=== PATIENT | female | born 1955 | race Caucasian/White ===

== ENCOUNTER 2020-09-04 07:29 | Outpatient (RCR) | payer MEDICARE, SELFPAY ==
--- NOTE | 2020-09-04 14:00 | HOLTER_ITS ---
APPROVED REPORT Conclusion There is a 48-hour monitor ordered for indication of palpitations. The patient was in normal sinus rhythm for the majority of the recording with an average heart rate o f 71 bpm. There are no episodes of ventricular tachycardia and rare PVCs. There were 2 episodes of supraventricular tachycardia with the longest lasting 3 beats. There were o ccasional PACs There were no episodes of atrial fibrillation, no pauses greater than 3 seconds and no evidence of hi gh degree heart block. There were 5 patient triggered events 1 of which was associated with PACs. The rest were associated with normal sinus rhythm.
== END 2020-09-06 23:59 | disposition home or self-care (01) ==
LOC: RT 07:29
PROVIDERS: PCP Internal Medicine; Visit Provider Internal Medicine
DX: R00.2 Palpitations (principal); I47.1 Supraventricular tachycardia; I49.1 Atrial premature depolarization
CPT/HCPCS: 93225; 93226

== ENCOUNTER 2020-09-04 13:29 | Outpatient (CLI) | payer MEDICARE, SELFPAY ==
[2020-09-04 14:40] LABS: HCT 44.7 % (36.0-46.0); HGB 14.4 g/dL (11.2-15.7); MCH 30.2 pg (27.0-33.0); MCHC 32.2 % (32.0-36.0); MCV 93.7 fL (80-95); MPV 10.7 fL (8.0-11.0); Platelet Count 203 10^3/uL (130-400); RBC 4.77 10^6/uL (3.93-5.22); RDW 13.4 % (11.7-14.6); RDW-SD 46.3 fL; WBC 5.09 10^3/uL (4.4-10.8)
[2020-09-04 15:46] LABS: ALT 38 U/L (14-59); AST 27 U/L (15-37); Albumin 3.8 g/dL (3.4-5.0); Alkaline Phosphatase 60 U/L (46-116); BUN 16 mg/dL (7-18); Bilirubin, Direct 0.1 mg/dL (0.0-0.2); Bilirubin, Total 0.5 mg/dL (0.2-1.0); CREATININE 0.6 mg/dL (0.55-1.02); Calcium 9.2 mg/dL (8.5-10.1); Chloride 107 mmol/L (98-107); Creatine Kinase 328 U/L (26-192); Glucose 142 mg/dL (74-106); Potassium 4.1 mmol/L (3.5-5.1); Sodium 144 mmol/L (136-145)
[2020-09-04 16:27] LABS: Vitamin B12 539 pg/mL (193-986)
[2020-09-05 09:01] LABS: IgA 134 mg/dL (85-499); IgG 813 mg/dL (610-1,616); IgM 108 mg/dL (35-242)
== END 2020-09-04 13:30 | disposition home or self-care (01) ==
LOC: LBO 13:31
PROVIDERS: PCP Internal Medicine; Visit Provider Internal Medicine
DX: M62.81 Muscle weakness (generalized) (principal); R00.2 Palpitations; R03.0 Elevated blood-pressure reading, without diagnosis of hypertension; R26.89 Other abnormalities of gait and mobility
CPT/HCPCS: 36415; 80053; 80076; 82550; 82784; 85027; 82607; 93225

== ENCOUNTER 2020-09-07 14:57 | Outpatient (CLI) | payer MEDICARE, SELFPAY | END 2020-09-07 14:58 | LOC: CARDO 11-16 09:18 | PROVIDERS: PCP Internal Medicine; Referring Provider Internal Medicine; Visit Provider Internal Medicine Cardiovascular Disease | DX: R00.2 Palpitations (principal); I47.1 Supraventricular tachycardia; I49.1 Atrial premature depolarization | CPT/HCPCS: 93227 ==

== ENCOUNTER → 2020-11-28 12:44 | Outpatient (BNVA) | payer MEDICARE, SELFPAY | PROVIDERS: PCP Internal Medicine; Referring Provider Internal Medicine; Visit Provider Psychiatry & Neurology Neurology | DX: M62.81 Muscle weakness (generalized) (principal); R00.2 Palpitations | CPT/HCPCS: 99205 ==

== ENCOUNTER 2021-01-09 13:17 | Outpatient (CLI) | payer MEDICARE, SELFPAY ==
--- NOTE | 2021-01-09 13:15 | RT.EKG_ITS ---
APPROVED REPORT Exam: Resting ECG Reason for Exam: palpitations Patient Location: O HR:76 bpm ECG Measurements Heart Rate 76 AXIS MN 228 P 64 QRSd 115 QRS -42 QT 412 T 46 QTc 464 Conclusion Sinus rhythm...normal P axis, V-rate 50- 99 Prolonged MN interval...MN >220, V-rate 50- 90 Left anterior fascicular block...axis(240,-40), init forces inf Left ventricular hypertrophy...multiple voltage criteria Possible Anterior infarct, old...Q >40mS, abnormal ST-T, V2-V5
== END 2021-01-09 13:18 | disposition home or self-care (01) ==
LOC: DI.CARD 13:18
PROVIDERS: PCP Internal Medicine; Visit Provider Internal Medicine Cardiovascular Disease
DX: R00.2 Palpitations (principal)
CPT/HCPCS: 93010

== ENCOUNTER → 2021-01-09 13:40 | Outpatient (BNVA) | payer MEDICARE, SELFPAY | PROVIDERS: PCP Internal Medicine; Referring Provider Internal Medicine; Visit Provider Internal Medicine Cardiovascular Disease | DX: R00.2 Palpitations (principal); R94.31 Abnormal electrocardiogram [ECG] [EKG]; R03.0 Elevated blood-pressure reading, without diagnosis of hypertension | CPT/HCPCS: 93005; 99202; 99213 ==

== ENCOUNTER 2021-02-20 00:51 | Outpatient (CLI) | payer MEDICARE, SELFPAY ==
--- NOTE | 2021-02-20 13:52 | DI.US_ITS ---
APPROVED REPORT EXAM: Comprehensive 2D, Doppler, and color-flow Echocardiogram Patient Location: Out-Patient Shaper Operator: Michelle Hernandez RDCS (AE) Indications: Palpitations Other Information Study Quality: Good Conclusion Normal left ventricular wall thickness and chamber size. Estimated ejection fraction is 60 to 65%. Wall motion is normal Normal right ventricular size and systolic function Both atria are normal in size The aortic valve is mildly sclerotic and trileaflet with trace regurgitation Wall motion Left Ventricle The left ventricle is normal size. The left ventricular systolic function is normal. The left ventric ular ejection fraction is within the normal range. There is normal left ventricular wall thickness. T here is normal LV segmental wall motion. There is no ventricular septal defect visualized. LVEF is 60 -65%. Right Ventricle The right ventricle is normal size. The right ventricular systolic function is normal. The RVSP is 19 .7 mmHg. Atria The left atrium size is normal. The right atrium size is normal. The interatrial septum is intact wit h no evidence for an atrial septal defect. Aortic Valve The aortic valve is mildly sclerotic Aortic valve is trileaflet. There is no aortic valvular stenosis . Trace aortic regurgitation. Mitral Valve The mitral valve is normal in structure. No evidence of mitral valve stenosis. Trace mitral regurgita tion. Tricuspid Valve The tricuspid valve is normal in structure. There is no tricuspid valve stenosis. Trace tricuspid reg urgitation. Pulmonic Valve The pulmonary valve is normal in structure. There is no pulmonic valvular stenosis. There is no pulmo paty valvular regurgitation. Great Vessels The aortic root is normal in size. The ascending aorta is borderline dilated. Aortic arch is normal i n caliber. IVC is normal in size and collapses >50% with inspiration. Pericardium There is no pericardial effusion. 2D Dimensions IVSD d PLAX 0.97 cm F: 0.6-1.0 LV Vol A2C d MOD 80.5 mL LVPW d PLAX 0.98 cm F: 0.6 - 1.0 LV Vol A4C d MOD 90.9 mL LVID d PLAX 4.45 cm F: 3.8 - 5.2 LA vol/ BSA A2C s A-L 27.0 mL/m2 LVDs 2.95 cm F: 2.2 - 3.5 LA vol/ BSA A4C s A-L 18.2 mL/m2 Ao Root d 3.36 cm F: 2.7 - 3.3 LA Vol/ BSA Biplane s A-L 23.7 mL/m2 RA Area A4C 11.15 cm2 LA Area A4C s MOD 12.28 cm2 RA Vol/ BSA A4C s A-L 16.2 mL/m2 LA Area A2C s MOD 15.95 cm2 Ao Asc Diam d 3.34 cm F: 2.3 - 3.1 LV EF A4C MOD 64.8 % LV EF Teichholz 62.2 % LV EF A2C MOD 60.0 % LVEF (Rader's) 61.58 % F: 54 - 74 LV EF Biplane MOD 61.6 % LV Volume 70.43 mL F: 46 - 106 SV 54.64 mL LV Volume Index 41.42 mL/m2 F: 29 - 61 SV Index 32.11 mL/m2 LV Vol Biplane MOD 88.7 mL FS 33.30 % LV Diastology E/A Ratio 1.2 MV E Vmax 0.89 (0.4-1.3 m/s) MV A Vmax 0.75 (0.4-1.3 m/s) MV E/A Ratio 1.14 Aortic Valve LVOT Area 3.59 cm2 AoV Area Vmax 2.85 cm2 LVOT Vmax 0.95 m/s AoV Area/ BSA (Vmax) 1.68 cm2/m2 LVOT Mean Dorian. 0.59 m/s CHAGO Mean Dorian. 2.50 cm2 LVOT Peak Grad 3.6 mmHg CHAGO Mean Dorian. Index 1.47 cm2/m2 LVOT Mean Grad 1.7 mmHg AR DT 1765 msec LVOT VTI 0.198 m AR PHT 512 msec LVOT Diam s 2.10 cm AoV Vmax 1.20 m/s Velocity Ratio 0.79 AoV Mean Dorian. 0.84 m/s AoV Peak Grad 5.7 mmHg LVOT SV 71.01 mL AoV Mean Grad 3.2 mmHg AoV VTI 0.279 m AoV Area VTI 2.54 cm2 AoV Area/ BSA (VTI) 1.49 cm/m2 Mitral Valve MV DT 178 (160-240 msec) MV PHT 52 msec MV Area PHT 4.26 cm2 MV VTI 0.251 m MV Area VTI 2.83 (4.0-6.0 cm2) Pulmonary Valve PV Vmax 0.86 (0.5-1.5 m/s) RVOT Peak Gr. 1.31 mmHg PV Peak Grad 3.0 mmHg RVOT Mean Gr. 0.70 mmHg PV Mean Grad 1.5 mmHg RVOT VTI 0.124 m PV VTI 0.193 m RVOT Vmax 0.57 m/s Tricuspid Valve TR Peak Grad 16.6 mmHg TR Vmax 2.04 m/s RA Pressure 3.00 mmHg RVSP (TR) 19.7 mmHg
== END 2021-02-20 01:11 ==
PROVIDERS: PCP Internal Medicine; Visit Provider Internal Medicine Cardiovascular Disease
DX: R00.2 Palpitations (principal)
CPT/HCPCS: 93306

== ENCOUNTER → 2021-04-19 12:48 | Outpatient (BNVA) | payer MEDICARE, SELFPAY | PROVIDERS: PCP Internal Medicine; Referring Provider Internal Medicine; Visit Provider Internal Medicine Cardiovascular Disease | DX: R94.31 Abnormal electrocardiogram [ECG] [EKG] (principal); R00.2 Palpitations | CPT/HCPCS: 99213 ==

== ENCOUNTER → 2021-05-29 11:05 | Outpatient (BNVA) | payer MEDICARE, SELFPAY | PROVIDERS: PCP Internal Medicine; Referring Provider Internal Medicine; Visit Provider Psychiatry & Neurology Neurology | DX: G71.11 Myotonic muscular dystrophy (principal); Z83.3 Family history of diabetes mellitus; R00.2 Palpitations | CPT/HCPCS: 99215 ==

== ENCOUNTER → 2021-11-27 10:40 | Outpatient (BNVA) | payer MEDICARE, SELFPAY | PROVIDERS: PCP Student in an Organized Health Care Education/Training Program; Referring Provider Student in an Organized Health Care Education/Training Program; Visit Provider Psychiatry & Neurology Neurology | DX: G71.11 Myotonic muscular dystrophy (principal) | CPT/HCPCS: 99214 ==

== ENCOUNTER 2021-12-17 02:50 | Outpatient (CLI) | payer MEDICARE, SELFPAY ==
[2021-12-17 10:51] LABS: Hemoglobin A1C 5.8 % (<5.7)
[2021-12-17 11:27] LABS: ALT 44 U/L (14-59); AST 36 U/L (15-37); Albumin 3.9 g/dL (3.4-5.0); Alkaline Phosphatase 64 U/L (46-116); Bilirubin, Direct 0.1 mg/dL (0.0-0.2); Bilirubin, Total 0.8 mg/dL (0.2-1.0); TSH (W/Ref FT4) 1.53 uIU/mL (0.36-3.74); Total Protein 7.7 g/dL (6.4-8.2)
== END 2021-12-17 02:51 | disposition home or self-care (01) ==
LOC: LBO 02:51
PROVIDERS: PCP Student in an Organized Health Care Education/Training Program; Visit Provider Psychiatry & Neurology Neurology
DX: G71.11 Myotonic muscular dystrophy (principal); M62.81 Muscle weakness (generalized); R73.9 Hyperglycemia, unspecified
CPT/HCPCS: 36415; 80076; 83036; 84443

== ENCOUNTER 2021-12-17 09:46 | Outpatient (CLI) | payer MEDICARE, SELFPAY ==
--- NOTE | 2021-12-17 09:45 | RT.EKG_ITS ---
APPROVED REPORT Exam: Resting ECG Patient Location: O HR:74 bpm ECG Measurements Heart Rate 74 AXIS KS 239 P 69 QRSd 113 QRS -46 QT 413 T 30 QTc 459 Conclusion Sinus rhythm...normal P axis, V-rate 50- 99 Prolonged KS interval...KS >220, V-rate 50- 90 Probable left atrial enlargement...P >50mS, <-0.10mV V1 Left anterior fascicular block...axis(240,-40), init forces inf Left ventricular hypertrophy...multiple LVH criteria
== END 2021-12-17 09:47 | disposition home or self-care (01) ==
PROVIDERS: PCP Student in an Organized Health Care Education/Training Program; Visit Provider Student in an Organized Health Care Education/Training Program
DX: R94.31 Abnormal electrocardiogram [ECG] [EKG] (principal); I44.4 Left anterior fascicular block
CPT/HCPCS: 36415; 80076; 83036; 84443; 93005; 93010

== ENCOUNTER 2022-03-26 01:42 | Outpatient (CLI) | payer MEDICARE, SELFPAY ==
--- NOTE | 2022-03-26 12:58 | DI.RAD_ITS ---
Exam(s) XR HAND LT COMPLETE EXAM: XR HAND LT COMPLETE CLINICAL HISTORY: eval left digit #2 for OA, mucoid cyst, joint path,JOINT MUCOID CYST,LESION. TECHNIQUE: 2D digital imaging was performed. COMPARISON: No exams were available for comparison FINDINGS: Four views: There is no evidence of fracture nor subluxations. No abnormal soft tissue calcifications. Bone den sity normal. No osseous lesions. No erosions. No obvious degenerative changes evident. IMPRESSION: No significant radiograph findings. DATA REPOSITORY: RADIATION DOSE DELIVERED:
== END 2022-03-26 02:02 ==
LOC: DI 01:42
PROVIDERS: PCP Student in an Organized Health Care Education/Training Program; Visit Provider Student in an Organized Health Care Education/Training Program
DX: Z12.31 Encounter for screening mammogram for malignant neoplasm of breast (principal); R92.8 Other abnormal and inconclusive findings on diagnostic imaging of breast; M19.042 Primary osteoarthritis, left hand; L98.9 Disorder of the skin and subcutaneous tissue, unspecified; M67.40 Ganglion, unspecified site
CPT/HCPCS: 77063; 77067; 73130

== ENCOUNTER → 2022-05-28 10:40 | Outpatient (BNVA) | payer MEDICARE, SELFPAY | PROVIDERS: PCP Student in an Organized Health Care Education/Training Program; Visit Provider Psychiatry & Neurology Neurology | DX: R00.2 Palpitations (principal); G71.11 Myotonic muscular dystrophy; R73.9 Hyperglycemia, unspecified | CPT/HCPCS: 99215 ==

== ENCOUNTER 2022-07-18 02:51 | Outpatient (CLI) | payer MEDICARE, SELFPAY ==
[2022-07-18 09:04] LABS: ALT 41 U/L (14-59); AST 32 U/L (15-37); Albumin 3.5 g/dL (3.4-5.0); Alkaline Phosphatase 64 U/L (46-116); Anion Gap 8.9 mmol/L (3-11); BUN 13 mg/dL (7-18); Bilirubin, Total 0.7 mg/dL (0.2-1.0); CO2 30.1 mmol/L (21.0-32.0); CREATININE 0.4 mg/dL (0.55-1.02); Calcium 9.3 mg/dL (8.5-10.1); Calculated LDL 133 mg/dL (<100); Chloride 105 mmol/L (98-107); Cholesterol 246 mg/dL (<200); Estimated GFR 107.74 (mL/min/1.73m2); Glucose 96 mg/dL (74-106); HDL Cholesterol 102 mg/dL (40-60); Potassium 4.3 mmol/L (3.5-5.1); Sodium 144 mmol/L (136-145); Triglyceride 59 mg/dL (<150)
== END 2022-07-18 02:52 | disposition home or self-care (01) ==
LOC: LBO 02:52
PROVIDERS: PCP Student in an Organized Health Care Education/Training Program; Visit Provider Student in an Organized Health Care Education/Training Program
DX: R73.03 Prediabetes; R79.89 Other specified abnormal findings of blood chemistry
CPT/HCPCS: 36415; 80053; 80061

== ENCOUNTER 2022-08-16 00:18 | Outpatient (CLI) | payer MEDICARE, SELFPAY ==
--- NOTE | 2022-08-16 07:09 | DI.US_ITS ---
Exam(s) US SOFT TISSUE EXTREMITY EXAM: US SOFT TISSUE EXTREMITY CLINICAL HISTORY: Evluate CYSTIC LESION, Rft index (DIP),ganglion,m67.441. TECHNIQUE: Ultrasound was performed using standard protocol. COMPARISON: US US SOFT TISSUE EXTREMITY from 08/16/2022 FINDINGS: Sonographic assessment utilizing grayscale and color Doppler imaging was performed and targeted to th e area of clinical concern. There is a tiny ill-defined cystic lesion measuring 0.5 x 0.1 x 0.3 cm in the soft tissues of the rig ht 5th finger. This is nonspecific sonographically. It has benign characteristics. Differential co nsiderations include sebaceous cyst, abscess, resolving hematoma or or ganglion cyst. IMPRESSION: DATA REPOSITORY:
--- NOTE | 2022-08-16 07:09 | DI.US_ITS ---
Exam(s) US SOFT TISSUE EXTREMITY EXAM: US SOFT TISSUE EXTREMITY CLINICAL HISTORY: Evluate CYSTIC LESION, Lft index (DIP),ganglion,m67.442. TECHNIQUE: Ultrasound was performed using standard protocol. COMPARISON: No exams were available for comparison FINDINGS: Sonographic assessment utilizing grayscale and color Doppler imaging was performed and targeted to th e area of clinical concern. There is a 0.8 x 0.2 x 0.9 cm cystic lesion in the soft tissues of the left index finger correspondin g to the palpable abnormality. It is nonspecific. Differential considerations include sebaceous cys t, abscess, resolving hematoma or ganglion cyst. IMPRESSION: DATA REPOSITORY:
== END 2022-08-16 00:38 ==
LOC: DI 00:18
PROVIDERS: PCP Student in an Organized Health Care Education/Training Program; Visit Provider Student in an Organized Health Care Education/Training Program
DX: M79.89 Other specified soft tissue disorders (principal)
CPT/HCPCS: 76881

== ENCOUNTER → 2022-12-03 10:16 | Outpatient (BNVA) | payer MEDICARE, SELFPAY | PROVIDERS: PCP Student in an Organized Health Care Education/Training Program; Referring Provider Student in an Organized Health Care Education/Training Program; Visit Provider Psychiatry & Neurology Neurology | DX: G71.11 Myotonic muscular dystrophy (principal); M62.81 Muscle weakness (generalized); R00.2 Palpitations | CPT/HCPCS: 99214 ==

== ENCOUNTER → 2023-02-04 14:34 | Outpatient (BNVA) | payer MEDICARE, SELFPAY | PROVIDERS: PCP Student in an Organized Health Care Education/Training Program; Referring Provider Student in an Organized Health Care Education/Training Program; Visit Provider Psychiatry & Neurology Neurology | DX: M62.81 Muscle weakness (generalized) (principal); G71.11 Myotonic muscular dystrophy; R00.2 Palpitations | CPT/HCPCS: 99214 ==

== ENCOUNTER 2024-01-21 02:12 | Outpatient (CLI) | payer MEDICARE, SELFPAY ==
[2024-01-21 13:08] LABS: Hemoglobin A1C 5.6 % (<5.7)
== END 2024-01-21 02:13 | disposition home or self-care (01) ==
PROVIDERS: PCP Student in an Organized Health Care Education/Training Program; Visit Provider Student in an Organized Health Care Education/Training Program
DX: R73.03 Prediabetes (principal)
CPT/HCPCS: 36415; 83036

== ENCOUNTER → 2024-02-03 14:39 | Outpatient (BNVA) | payer MEDICARE, SELFPAY | PROVIDERS: PCP Student in an Organized Health Care Education/Training Program; Visit Provider Psychiatry & Neurology Neurology | DX: G71.11 Myotonic muscular dystrophy (principal); M62.81 Muscle weakness (generalized); R00.2 Palpitations | CPT/HCPCS: 99215 ==

== ENCOUNTER 2024-03-05 10:27 | Emergency (ER) | payer MEDICARE, SELFPAY ==
[2024-03-05] VITALS (11 sets, daily range): BP systolic 142–165; BP diastolic 45–94; PULSE 70–85; RESP 14; TEMP 36.4; O2SAT 97–99
--- NOTE | 2024-03-05 10:38 | ED.GENADUL_ITS ---
Discharge Plan Disposition Patient Disposition: Home Condition: Stable Discharge Details Clinical Impression: Gastroenteritis Primary Care Provider: Ana Bauer ED Provider: Larry Jacinto Home Meds and New Rx's Prescriptions: New azithromycin 500 mg tablet 500 mg PO DAILY 3 Days Qty: 3 0RF ondansetron 4 mg tablet,disintegrating 4 mg PO Q8H PRN (Reason: nausea and vomiting) Qty: 30 0RF potassium chloride 20 mEq tablet extended release 20 meq PO BID 10 Days Qty: 20 0RF Continued Serum Tears 6 - 8 drp OU DAILY PRN Patient Comments: 6-8 gtts OU daily, w/ blood testing.HE Calm Gummies Magnesium 1 tab PO HS Patient Comments: Pt taking Calm gummies, suggested dose on bottle is 330mg, which is 4 gummies, she is currently taking 2 gummies once per day.HE Ckmblfwm-Lscxfm-GVH with vit D 1 EACH tablet 3 ea PO DAILY artificial tears with lanolin Ointment 1 applic ophthalmic (eye) BID-TID PRN peg 400-propylene glycol 0.4-0.3 % drops, liquid gel 1 drp ophthalmic (eye) QHS Discharge Instructions Instructions: Azithromycin (Systemic), High Potassium Diet, Ondansetron, Potassium Chloride, Diarrhea, Adult ED Additional Instructions: You were seen in the emergency department for your diarrhea since yesterday. Have some stool positive for lactoferrin which could indicate bacterial diarrhea, I am treating this with azithromycin which treats common traveler's diarrhea and foodborne illness diarrhea cases. Please continue good p.o. intake of Pedialyte and nutritious foods, take the prescribed potassium supplements for 10 days have your level rechecked at your primary care. You may take [id number]-[id number]-[id number] antidiarrheal like Imodium as needed. Please return for intractable nausea and vomiting and diarrhea, increasing abdominal pain, fever, chest pain or other emergent concerns, I have provided you with a prescription for the nausea tablets that dissolves under your tongue called ondansetron. Referrals: Ana Bauer DO [Primary Care Provider] - Discharge Data Discharge Date/Time-TO BE ENTERED AT DEPARTURE: 03/05/24 12:57 HPI General Date/Time Provider Initiated Documentation: 03/05/24 10:28 . HPI Narrative: 68 year-old female presents to ED today by POV/ambulating with a chief complaint of mild abdominal pain, and diarrhea since yesterday- completely liquid. Quality described as mild dehydration but she is not having nausea or vomiting, she just states that she has been trying to drink less as she equates this with how much liquid she is excreting, no radiation to high fever, severe abdominal pain, cough, shortness of breath, black or bloody stools, hematuria. Severity is described as severe for diarrhea. Palliating factors include nothing specific attempted. Provoking factors include nothing specific. Events leading up to the incident/Associated Symptoms: Patient endorses history of partial colectomy in 1995. Patient not anticoagulated. Related Data Home Medications ?Medication ?Instructions ?Recorded ?Confirmed glucosamine 750 eb-kvcgsb-fdd 2-C 3 ea PO DAILY 11/04/12 03/05/24 30 mg-D3 1,000 unit-kong 1 mg tablet (Ikkshqvjwpl-Xorjebbbpit-BBW + vitD) artificial tears with lanolin eye 1 applic ophthalmic (eye) BID-TID 05/28/23 03/05/24 ointment PRN peg 400-propylene glycol 0.4 %-0.3 1 drp ophthalmic (eye) QHS 06/18/23 03/05/24 % eye liquid gel drops Serum Tears 6 - 8 drp OU DAILY PRN 07/11/23 03/05/24 Calm Gummies Magnesium 1 tab PO HS 02/13/24 03/05/24 azithromycin 500 mg tablet 500 mg PO DAILY 3 days #3 tabs 03/05/24 ondansetron 4 mg disintegrating 4 mg PO Q8H PRN nausea and 03/05/24 tablet vomiting #30 tabs potassium chloride 20 mEq 20 meq PO BID hypokalemia 10 days 03/05/24 tablet,extended release #20 tabs Previous Rx's ?Medication ?Instructions ?Recorded azithromycin 500 mg tablet 500 mg PO DAILY 3 days #3 tabs 03/05/24 ondansetron 4 mg disintegrating 4 mg PO Q8H PRN nausea and 03/05/24 tablet vomiting #30 tabs potassium chloride 20 mEq 20 meq PO BID hypokalemia 10 days 03/05/24 tablet,extended release #20 tabs Allergies Allergy/AdvReac Type Severity Reaction Status Date / Time azithromycin AdvReac diarrhea Verified 03/05/24 10:34 tdap AdvReac Left Uncoded 03/05/24 10:34 deltoid muscular pain for extended period of 3M General Stated Complaint: Abd Prob MITCHEL: 3 Review of Systems All systems reviewed & are unremarkable except as noted in HPI and below Exam Narrative Exam Narrative: GENERAL APPEARANCE: Well-nourished, non-toxic, awake and alert, atraumatic, no acute distress. SKIN: Warm, pink, dry, intact, without rashes/lesions/ulcerations. HEAD: Normocephalic, atraumatic, normal hair distribution for gender/age. EYES: Normal conjunctiva, no exudates on lids/lashes. ENT: Nares patent, no circumoral cyanosis, no facial swelling NECK: Supple, trachea midline, painless cervical ROM. LUNGS/CHEST: Lungs CTA bilaterally- no rhonchi/rales/wheezes diffusely, non- labored respirations, normal A/P diameter, symmetrical expansion, no chest wall deformity HEART (CV/PV): Regular rate and rhythm without murmur, no peripheral edema, no JVD. ABDOMEN: Soft, non-distended, no guarding, no tenderness. MSK: Normal ROM, no swelling/deformity to bilateral UEs or LEs, moving all extremities without weakness, no cyanosis, spine midline without tenderness, normal curvature. NEURO: Mental Status AAOx4 - alert to person, place, time, events No facial droop, no forehead involvement. Motor: No focal weakness - strength 5/5 in bilateral UEs and LEs, proximal and distal, symmetric. Sensory: sensation intact to light touch globally. Gait normal: patient ambulated without ataxia into ED room. PSYCH: euthymic, cooperative, pleasant, appropriate speech Course Vital Signs Vital signs: Vital Signs Temperature 36.4 C L 03/05/24 10:30 Pulse 85 03/05/24 10:30 Respiratory Rate 14 03/05/24 10:30 Blood Pressure 165/94 H 03/05/24 10:30 Pulse Oximetry 97 03/05/24 10:30 Temperature 36.4 C L 03/05/24 10:36 Temperature Source Oral 03/05/24 10:36 Pulse 85 03/05/24 10:36 Respiratory Rate 14 03/05/24 10:36 Blood Pressure 165/94 H 03/05/24 10:36 Pulse Oximetry 97 03/05/24 10:36 Oxygen Delivery Method Room Air 03/05/24 10:36 Oxygen Flow Rate 0 03/05/24 10:36 Pain Level 2 03/05/24 10:36 Medical Decision Making This dictation utilizes [id number]-bi-[id number] dictation software and may contain unedited grammatical errors. 68 year-old female presents to ED today by POV/ambulating with a chief complaint of mild abdominal pain, and diarrhea since yesterday- completely liquid. Quality described as mild dehydration but she is not having nausea or vomiting, she just states that she has been trying to drink less as she equates this with how much liquid she is excreting, no radiation to high fever, severe abdominal pain, cough, shortness of breath, black or bloody stools, hematuria. Severity is described as severe for diarrhea. Palliating factors include nothing specific attempted. Provoking factors include nothing specific. Events leading up to the incident/Associated Symptoms: Patient endorses history of partial colectomy in 1995. Patients' medical history: Insulin resistance, hyperlipidemia, first- degree AV block, prediabetes, palpitations. Family and social history: Eats normal diet, lives independently. Pertinent exam findings / vital signs include no abdominal tenderness, normal conjunctiva, very mild skin tenting to hands, benign cardiopulmonary status. Differential / pathologies of concern include gastroenteritis, electrolyte abnormality. Diagnostic studies of: -CBC, CMP, magnesium, UA, stool studies. -CBC benign -CMP shows hypokalemia 2.9 -Magnesium within normal limits -UA sample not provided -Negative for C. difficile, is positive lactoferrin in stool, giving ABX for em piric bacterial enteritis Interventions of: -4mg PO zofran, 40mEq K-Chlor, Pedialyte, Rx for potassium supplements. ED Course/Assessment/Plan: 68-year-old female presents with 1 day of diarrhea, she follows her PCP office and they referred her for IV antibiotics, had hypokalemia on arrival but no signs of severe clinical dehydration, tolerating p.o. intake here and I did prescribe her potassium supplements as well as 3 days of azithromycin as she had lactoferrin on stool studies indicating a possible bacterial gastroenteritis, counseled the patient on staying well-hydrated and that drinking more fluids would not make her diarrhea more liquid and suggest she try Imodium A-D, I stressed strict return criteria for any severe increase in abdominal pain, fever, intractable nausea or vomiting. Findings not consistent with sepsis, acute abdominal pathology, severe electrolyte abnormality. Disposition of gastroenteritis. Patient verbalized understanding of the plan and return to ED criteria and engaged in shared decision making. Medical Records Medical records reviewed: Yes I reviewed the patient's medical records. Lab Data Lab results reviewed: Yes I reviewed the patient's lab results. Labs: 03/05/24 11:35 Stool Lactoferrin Latex Agglutination - Final Laboratory Tests Range/Units 03/05/24 03/05/24 03/05/24 11:10 11:35 12:35 WBC (4.4-10.8) 10^3/uL 5.87 RBC (3.93-5.22) 10^6/uL 4.97 Hgb (11.2-15.7) g/dL 14.8 Hct (36.0-46.0) % 46.6 H MCV (80-95) fL 94 MCH (27.0-33.0) pg 29.8 MCHC (32.0-36.0) % 31.8 L RDW (11.7-14.6) % 13.2 Plt Count (130-400) 10^3/uL 204 MPV (8.0-11.0) fL 10.0 Immature Gran % % 0.3 Neutrophils % % 69.7 Lymphocytes % % 17.2 Monocytes % % 12.3 Eosinophils % % 0.3 Basophils % % 0.2 Nucleated RBC % (0.0-0.3) % 0.0 Absolute Neutrophils (1.2-6.7) 10^3/uL 4.09 Absolute Lymphocytes (1.2-3.4) 10^3/uL 1.01 L Absolute Monocytes (0.1-0.8) 10^3/uL 0.72 Absolute Eosinophils (0.0-0.7) 10^3/uL 0.02 Absolute Basophils (0.0-0.2) 10^3/uL 0.01 Sodium (136-145) mmol/L 142 Potassium (3.5-5.1) mmol/L 2.9 L* Chloride (98-107) mmol/L 106 Carbon Dioxide (21.0-32.0) mmol/L 26.5 Anion Gap (3-11) mmol/L 9.5 BUN (7-18) mg/dL 21 H Creatinine (0.55-1.02) mg/dL 0.6 Est GFR (CKD-EPI 2020) (mL/min/1.73m2) 97.10 Glucose (74-106) mg/dL 92 Calcium (8.5-10.1) mg/dL 9.1 Magnesium (1.8-2.4) mg/dL 1.9 Total Bilirubin (0.2-1.0) mg/dL 0.44 AST (15-37) U/L 41 H ALT (14-59) U/L 44 Alkaline Phosphatase (46-116) U/L 73 Total Protein (6.4-8.2) g/dL 7.7 Albumin (3.4-5.0) g/dL 3.7 Urine Color Cancelled Urine Clarity Cancelled Urine pH Cancelled Ur Specific Hoven Cancelled Urine Protein Cancelled Urine Ketones Cancelled Urine Blood Cancelled Urine Nitrite Cancelled Urine Bilirubin Cancelled Urine Urobilinogen Cancelled Ur Leukocyte Esterase Cancelled Urine Glucose Cancelled Stl C.difficile Tox PCR (Negative) Negative Quality:SDOH Health Related Social Needs: No Data to Display PFSH All Active Problems (Updated 03/05/24 @ 12:38 by SOHEILA Castaneda) Gastroenteritis (Acute) Lesion of left nipple (Acute) Pain, tenderness, sensitivity Actinic keratosis (Acute) 11/06/23 [facility] [place] Derm note.HE Other seborrheic keratosis (Acute) 11/06/23 [facility] [place] Derm note.HE Other rosacea (Acute) 11/06/23 [facility] Derm note.HE Benign nevus (Acute) 11/06/23 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 possible assoc with MD2 Trochanteric bursitis of left hip (Acute) Chronic left hip pain (Acute) DDx Iliopsoas mm/tendonitis; Hx Troch Bursitis (NOT this per 09/03/22 ov) Nasal abrasion (Acute) Mass of joint of finger (Acute) Digital mucinous cyst of finger (Acute) Vertigo (Acute) Every morning, on a walk.. With spinning but no fall Sensorineural hearing loss (SNHL) of both ears (Acute) Nasal vestibulitis (Acute) Prediabetes (Acute) Mucoid cyst, joint (Acute) left pointer, right pinky [ ] XR [ ] Ortho Myotonic dystrophy, type 2 (Acute) NeuroMusc Anat, [place] [facility] (ID thru [facility], and dtr has it) Abnormal electrocardiogram (Acute) Ocular rosacea (Chronic) doxycycline in winter months per Dr. Anibal Meneses. 10/31/22 Tubular adenoma of colon (Chronic 02/07/16) Family hx of colon cancer (Acute) Elevated blood pressure reading without diagnosis of hypertension (Chronic 09/19/15) Muscle weakness (Acute) Palpitations (Acute) Medical History BCC (basal cell carcinoma of skin) (~06/2003) nose, followed by Dr. Meneses Globus sensation Resolved 05/2022 Insulin resistance Combined hyperlipidemia Surgical History Status post placement of implantable loop recorder (~10/21/23) Yag Laser (06/12/05) Left eye, Dr Reilly Skin Cancer Removal (06/12/99) [facility] nose; & another lesion another time section (05/11/88) section (06/11/85) Colonoscopy - IV Sedation (02/07/16) Colectomy 1985 - Appendix complication causing removal of 10 inches of ascending colon Extraction of cataract (06/12/15) dickson Barba in 1989's Appendectomy (01/11/86) Dr Crocker, following rupture, with R colectomy Family History Father , ALS at age 74. Heart disease Sister Essential hypertension Breast cancer Brother Essential hypertension Brother Heart disease Diabetes Alcohol use disorder Aunt Breast cancer Daughter Anxiety Social History Smoking/Tobacco Use Status: Never Second Hand Exposure: No Smoking risk assessment performed?: Yes Alcohol Intake: never Drug use: Never Substance use type: does not use Counseling given: No Adopted: No Caregiver/Support person: No Foster care: No Household members: spouse Housing: house Number of Children: 2 number of grandchildren: 2 Communication Needs: Hard of Hearing Education Level: college Details: Associate's Do you need help understanding health information?: Rarely current occupation: museum interventional radiology tech Pets and animals: Yes Pets and animals: dog(s) Sexually active: No Do you think of yourself as: straight/heterosexual Current gender identity: female What is your relationship status?: How often do you talk on the phone with friends or family?: three or more times per week How often do you get together with friends or relatives?: once per week Do you belong to any clubs or organized social groups?: yes Panel score (0-1 are the most socially isolated patients): 3 What type of physical activity do you participate in: other Details: Senior exercise group and running Duration: 45-60 minutes/day Frequency: 5-6 times per week Laina/Catholic: None Special laina needs: No Seatbelt use: always Helmet use: Yes Drive intox 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
[2024-03-05] MEDS: Electrolyte SOLUTION,ORAL 1000 ML BTL PO (10:58)
[2024-03-05] MEDS: Ondansetron O.D.T. 4 MG TABEF PO (10:58)
[2024-03-05 11:15] LABS: Abs Immature Grans 0.02 10^3/uL (0.0-0.06); Absolute Basophil Count 0.01 10^3/uL (0.0-0.2); Absolute Eosinophil Count 0.02 10^3/uL (0.0-0.7); Absolute Lymphocyte Count 1.01 10^3/uL (1.2-3.4); Absolute Monocyte Count 0.72 10^3/uL (0.1-0.8); Absolute Neutrophil Count 4.09 10^3/uL (1.2-6.7); Basophils % 0.2 %; Eosinophils % 0.3 %; HCT 46.6 % (36.0-46.0); HGB 14.8 g/dL (11.2-15.7); Immature Grans % 0.3 %; Lymphocytes % 17.2 %; MCH 29.8 pg (27.0-33.0); MCHC 31.8 % (32.0-36.0); MCV 94 fL (80-95); Monocytes % 12.3 %; Neutrophils % 69.7 %; Platelet Count 204 10^3/uL (130-400); RBC 4.97 10^6/uL (3.93-5.22); RDW 13.2 % (11.7-14.6); RDW-SD 45.4 fL; WBC 5.87 10^3/uL (4.4-10.8)
[2024-03-05 11:32] LABS: ALT 44 U/L (14-59); AST 41 U/L (15-37); Albumin 3.7 g/dL (3.4-5.0); Alkaline Phosphatase 73 U/L (46-116); Anion Gap 9.5 mmol/L (3-11); BUN 21 mg/dL (7-18); Bilirubin, Total 0.44 mg/dL (0.2-1.0); CO2 26.5 mmol/L (21.0-32.0); CREATININE 0.6 mg/dL (0.55-1.02); Calcium 9.1 mg/dL (8.5-10.1); Chloride 106 mmol/L (98-107); Glucose 92 mg/dL (74-106); Magnesium 1.9 mg/dL (1.8-2.4); Sodium 142 mmol/L (136-145); Total Protein 7.7 g/dL (6.4-8.2)
[2024-03-05 11:35] LABS: Potassium 2.9 mmol/L (3.5-5.1)
[2024-03-05] MEDS: Potassium Chloride 20 MEQ TABCR 40 MEQ PO (11:48)
[2024-03-05 12:23] LABS: C Diff PCR Negative (Negative)
[2024-03-05 20:49] LABS: Campylobacter PCR Negative (Negative); Salmonella PCR Negative (Negative); Shiga Toxin PCR Negative (Negative); Shigella/Enteroinvasive Ecoli Negative (Negative)
== END 2024-03-05 12:57 | disposition home or self-care (01) ==
PROVIDERS: Emergency Provider Physician Assistant; PCP Student in an Organized Health Care Education/Training Program
DX: K52.9 Noninfective gastroenteritis and colitis, unspecified (principal); E78.2 Mixed hyperlipidemia
CPT/HCPCS: 80053; 87493; 87505; 99283; 81003; 83630; 83735; 85025

== ENCOUNTER 2024-03-30 01:27 | Outpatient (CLI) | payer MEDICARE, SELFPAY ==
--- NOTE | 2024-03-30 07:15 | DI.MAMMO_ITS ---
Exam(s) MAMMO SCREENING EXAM: MAMMO SCREENING CLINICAL HISTORY: screening,z12.39. TECHNIQUE: Bilateral full field digital CC and MLO mammographic images were obtained with 3D tomosyn thesis and utilizing computer aided detection (CAD). COMPARISON: Prior mammograms were reviewed. FINDINGS: There has been no significant change in the appearance and distribution of the fibroglandular tissue. There has been interval placement of a cardiac loop detector which is projected over the medial aspec t of the left breast. There are no new spiculated masses nor new malignant appearing microcalcification groups. Stable benign-appearing microcalcifications again noted in both breasts. There is no significant architectural distortion nor skin thickening-retraction. IMPRESSION: No radiographic evidence of malignancy. BI-RADS Category 1 - Negative Breast Density - Category C - Heterogeneously dense Breast density Category C or D implies that the patient has dense breast tissue. Dense breast tissue can make it harder to find cancer on a mammogram. Dense breast tissue is also associated with an incr eased risk of breast cancer. This information about the result of the mammogram report was provided to the patient to raise their awareness. Use this report when you speak with the patient about their risks for breast cancer, which includes their family history. At that time, you may recommend additional screening tests (Ultrasoun d or MRI) as these tests may add significant information. A negative radiographic report should not delay biopsy if a dominant or clinically suspicious mass is present. Up to ten percent of cancers are not identified on mammography. A negative report may reinforce clinical impression. Adenosis and dense breasts may obscure an underlying neoplasm. False positive reports average 6 to 10%. Patient will receive a letter notifying them of these results.
== END 2024-03-30 01:47 ==
PROVIDERS: PCP Family Medicine; Visit Provider Student in an Organized Health Care Education/Training Program
DX: Z12.31 Encounter for screening mammogram for malignant neoplasm of breast (principal); R92.333 Mammographic heterogeneous density, bilateral breasts
CPT/HCPCS: 77063; 77067

== ENCOUNTER → 2025-01-24 13:58 | Outpatient (BNVA) | payer MEDICARE, SELFPAY | PROVIDERS: PCP Family Medicine; Visit Provider Psychiatry & Neurology Neurology | DX: G71.11 Myotonic muscular dystrophy (principal); R00.2 Palpitations; M62.81 Muscle weakness (generalized); R53.83 Other fatigue | CPT/HCPCS: 99213 ==